=== PATIENT | female | born 1970 | race Caucasian/White ===

== ENCOUNTER 2018-09-09 13:25 | Emergency (ER) | payer BC, OTHER ==
[2018-09-09 14:12] VITALS: BP 140/91
--- NOTE | 2018-09-09 14:24 | UC ---
FLU HPI - HPI Summary HPI Summary: 48 year old female presents with 4 day history of nasal congestion, clear nasal discharge, sore throat, and muscle aches. States had low grade fever (100 F) at onset of symptoms. Over past 2 days has developed a harsh, non-productive cough. Denies chest pain, shortness of breath, abdominal pain, nausea, or vomiting. - History of Current Complaint Chief Complaint: UCRespiratory Stated Complaint: FLU-LIKE SYMPTOMS Time Seen by Provider: 09/09/18 14:16 Hx Obtained From: Patient Hx Last Menstrual Period: na Onset/Duration: Gradual Onset, Lasting Days - 4 Severity Initially: Moderate Pain Intensity: 9 Associated Signs & Symptoms: Positive: Fever, Myalgia, Cough, Sore Throat, Nasal Congestion. Negative: Headache, Vomiting - Allergy/Home Medications Allergies/Adverse Reactions: Allergies Allergy/AdvReac Type Severity Reaction Status Date / Time Penicillins Allergy Intermediate Rash Verified 09/10/18 15:53 PMH/Surg Hx/FS Hx/Imm Hx Previously Healthy: Yes - Denies significan PMH - Surgical History Surgical History: Yes Surgery Procedure, Year, and Place: BREAST IMPLANTS - Family History Known Family History: Positive: Non-Contributory - Social History Occupation: Employed Full-time Lives: With Family Alcohol Use: Occasionally Substance Use Type: None Smoking Status (MU): Never Smoked Tobacco - Immunization History Most Recent Influenza Vaccination: 2012/2013 Season Review of Systems All Other Systems Reviewed And Are Negative: Yes Constitutional: Positive: Fever Skin: Negative: Rash Eyes: Negative: Drainage, Eye Redness ENT: Positive: Sore Throat, Nasal Discharge, Sinus Congestion. Negative: Ear Ache Respiratory: Positive: Cough. Negative: Shortness Of Breath Cardiovascular: Negative: Palpitations, Chest Pain Gastrointestinal: Negative: Abdominal Pain, Vomiting, Diarrhea, Nausea Is Patient Immunocompromised?: No Physical Exam - Summary Physical Exam Summary: GENERAL APPEARANCE: Well developed, well nourished, alert and cooperative, and appears to be in no acute distress. EYES: No conjuntival erythema or drainage. EARS: External auditory canals and tympanic membranes clear, hearing grossly intact. NOSE: Nasal congestion without nasal discharge. THROAT: Oral cavity normal. Mild pharyngeal erythema with cobblestoning. No tonsilar edema or exudate. Teeth and gingiva in good general condition. NECK: Neck supple, non-tender without lymphadenopathy. CARDIAC: Normal S1 and S2. No S3, S4 or murmurs. Rhythm is regular. There is no peripheral edema, cyanosis or pallor. Extremities are warm and well perfused. Capillary refill is less than 2 seconds. LUNGS: Clear to auscultation and percussion without rales, rhonchi, wheezing or diminished breath sounds. Nonproductive cough. ABDOMEN: Positive bowel sounds. Soft, nondistended, nontender. No guarding or rebound. No masses or hepatosplenomegally. MUSKULOSKELETAL: ROM intact to all extremities. No joint erythema or tenderness. Normal muscular development. Normal gait. SKIN: Skin normal color, texture and turgor with no lesions or eruptions. Triage Information Reviewed: Yes Vital Signs: Initial Vital Signs Temp 98.3 F 09/09/18 14:09 Pulse 79 09/09/18 14:09 Resp 18 09/09/18 14:09 BP 140/91 09/09/18 14:09 Pulse Ox 100 09/09/18 14:09 Vital Signs Reviewed: Yes Flu Course/Dx - Course Course Of Treatment: 48 year old female presents with 4 day history of nasal congestion, clear nasal discharge, sore throat, and muscle aches. States had low grade fever (100 F) at onset of symptoms. Over past 2 days has developed a harsh, non-productive cough. Afebrile. Exam reveals well appearing adult female with nasal congestion, mild pharyngeal erythema with cobblestoning, and a non- productive cough consistent with a viral URI. Recommend symptomatic treatment including fluticasone nasal spray, saline rinses, and Tessalon Perles PRN for cough. She is to follow up with her PCP in 7 days if symptoms persist. Warning symptoms reviewed. Verbalizes understanding and agrees with POC. - Differential Dx/Diagnosis Differential Diagnosis/HQI/PQRI: Bronchitis, Influenza, Pneumonia, Upper Respiratory Infection Provider Diagnosis: Viral URI with cough Discharge - Sign-Out/Discharge Documenting (check all that apply): Patient Departure All imaging exams completed and their final reports reviewed: No Studies - Discharge Plan Condition: Stable Disposition: HOME Prescriptions: Benzonatate CAP* [Tessalon 100 MG CAP*] 100 mg PO TID PRN #30 cap PRN Reason: Cough Fluticasone NASAL SPRAY 50MCG* [Flonase NASAL SPRAY 50MCG*] 2 spray BOTH NARES DAILY #1 btl Patient Education Materials: Upper Respiratory Infection (ED) Referrals: Tk Hamm MD [Primary Care Provider] - 7 Days (If symptoms persist.) Additional Instructions: Your history and exam are consistent with viral upper respiratory infection. Viral infections do not respond to antibiotics and are limited to the treatment of symptoms. Viral infections typically run their course in 7-10 days. Drink plenty of fluids to avoid dehydration especially if you are running any fever. Continue taking the Aleve D according to directions. Start fluticasone (Flonase) nasal spray 2 sprays each nostril once a day. Use a saline rinse kit such as Neti Pot or NeilMed at least twice a day to help thin secretions and promote drainage. Take Tessalon Perles 1 cap every 8 hours as needed for cough. Use salt water gargles several times a day for the sore throat. You may also use Chloraseptic spray or Cepacol lonzenges according to directions which contain a numbing medication and can provide some temporary relief from your sore throat. Follow up with your primary care provider in 7 days if your symptoms persist. Seek immediate medical attention in the emergency room if you have fever greater than 100.5 F despite taking ibuprofen, are unable to swallow or develop drooling, have chest pain, have any difficulty breathing, or any worsening of symptoms. - Billing Disposition and Condition Condition: STABLE Disposition: Home
== END 2018-09-09 14:40 | disposition home or self-care (01) ==
LOC: UCEAST 13:25
DX: J06.9 Acute upper respiratory infection, unspecified (principal); R05 Cough; Z88.0 Allergy status to penicillin
CPT/HCPCS: 99212; G0463

== ENCOUNTER 2018-09-10 15:19 | Emergency (ER) | payer BC ==
[2018-09-10 15:53] VITALS: BP 142/79
--- NOTE | 2018-09-10 16:57 | UC ---
Respiratory Complaint HPI - HPI Summary HPI Summary: Pt presents with c/o worsening cough, "whooping" when coughing and coughing fits that cause her " to be unable to catch her breath". Pt was seen here 1 day ago and given tk cason and states "they do nothing for me" - History of Current Complaint Chief Complaint: UCRespiratory Stated Complaint: URI Time Seen by Provider: 09/10/18 16:51 Hx Obtained From: Patient Hx Last Menstrual Period: na ?: No Onset/Duration: Sudden Onset, Lasting Days, Still Present, Worse Since - onset Timing: Intermittent Episodes Severity Initially: Mild Severity Currently: Moderate Pain Intensity: 6 Character: Cough: Nonproductive Aggravating Factors: Exertion, Deep Breaths, Recumbent Position Alleviating Factors: Nothing Associated Signs And Symptoms: Positive: Wheezing - Risk Factors Pulmonary Embolism Risk Factors: Negative Cardiac Risk Factors: Negative Pseudomonas Risk Factors: Negative Tuberculosis Risk Factors: Negative - Allergies/Home Medications Allergies/Adverse Reactions: Allergies Allergy/AdvReac Type Severity Reaction Status Date / Time Penicillins Allergy Intermediate Rash Verified 09/10/18 15:53 Home Medications: Home Medications Naproxen Sodium/Pseudoephedrin [Aleve-D Sinus and Cold Caplet] 1 tab PO [History] PMH/Surg Hx/FS Hx/Imm Hx Previously Healthy: Yes - Surgical History Surgical History: Yes Surgery Procedure, Year, and Place: IMPLANTS - Family History Known Family History: Positive: Cardiac Disease - Social History Occupation: Employed Full-time Alcohol Use: Occasionally Substance Use Type: None Smoking Status (MU): Never Smoked Tobacco Have You Smoked in the Last Year: No - Immunization History Most Recent Influenza Vaccination: Season Vaccination Up to Date: No Review of Systems All Other Systems Reviewed And Are Negative: Yes Constitutional: Positive: Chills, Fatigue Skin: Positive: Negative Eyes: Positive: Negative ENT: Positive: Negative Respiratory: Positive: Shortness Of Breath, Cough Cardiovascular: Positive: Negative Gastrointestinal: Positive: Negative Genitourinary: Positive: Negative Motor: Positive: Negative Neurovascular: Positive: Negative Musculoskeletal: Positive: Negative Neurological: Positive: Negative Psychological: Positive: Negative Is Patient Immunocompromised?: No Physical Exam Triage Information Reviewed: Yes Appearance: Ill-Appearing Vital Signs: Initial Vital Signs Temp 98.1 F 09/10/18 15:48 Pulse 85 09/10/18 15:48 Resp 18 09/10/18 15:48 BP 142/79 09/10/18 15:48 Pulse Ox 100 09/10/18 15:48 Vital Signs Reviewed: Yes Eye Exam: Normal ENT Exam: Normal Dental Exam: Normal Neck exam: Normal Respiratory: Positive: Lungs clear Cardiovascular Exam: Normal Musculoskeletal Exam: Normal Neurological Exam: Normal Psychological Exam: Normal Skin Exam: Normal UC Diagnostic Evaluation - Laboratory O2 Sat by Pulse Oximetry: 100 Respiratory Course/Dx - Course Course Of Treatment: I disucssed my concern for whooping cough. Pt verbalized understanding and agreed to plan of care. - Differential Dx/Diagnosis Differential Diagnosis/HQI/PQRI: Bronchitis Provider Diagnosis: Bronchitis Discharge - Sign-Out/Discharge Documenting (check all that apply): Patient Departure All imaging exams completed and their final reports reviewed: No Studies - Discharge Plan Condition: Stable Disposition: HOME Prescriptions: Azithromycin TAB* [Zithromax TAB (Z-ERJI) 250 mg #6 tabs] 2 tab PO .TODAY, THEN 1 DAILY #1 reji Codeine Phosphate/Guaifenesin [Codeine-Guaifen 10-100 mg/5 ml] 5 ml PO BEDTIME PRN #35 ml MDD 5 ml PRN Reason: Cough predniSONE TAB* [Deltasone 20 MG TAB*] 20 mg PO DAILY #4 tab Patient Education Materials: Acute Bronchitis (ED), Bronchospasm (ED) Referrals: Tk Hamm MD [Primary Care Provider] - As Soon As Possible - Billing Disposition and Condition Condition: STABLE Disposition: Home
[2018-09-12 18:51] LABS: Bordetella pertussis PCR Negative
== END 2018-09-10 17:45 | disposition home or self-care (01) ==
LOC: UCEAST 15:19
DX: J40 Bronchitis, not specified as acute or chronic (principal); Z88.0 Allergy status to penicillin
CPT/HCPCS: 87798; 99212; G0463

== ENCOUNTER 2018-10-03 20:27 | Emergency (ER) | payer BC ==
--- NOTE | 2018-10-03 21:39 | ED ---
Shortness of Breath - HPI Summary HPI Summary: This patient is a 48 year old F presenting to [facility] accompanied by her with a chief complaint of SOB since a couple weeks ago. Patient reports fatigue , shoulder pain, back pain, HERNANDEZ, vision difficulties, neck pain, and leg cramping. Patient denies CP, cough, rhinorrhea, edema of the LEs, N/V, rash, or joint pain. 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 In July she travelled to [place] and [place]. She has been teaching all week and feels very fatigued during her classes. She wears contacts and glasses and noticed that her vision is getting worse very quickly. Her head and neck have stopped hurting while in the ED. The patient reports abnormal period patterns, occasional night diaphoresis. [facility] diagnosed her with whooping cough several weeks ago. She had a cough and many cold symptoms. This occurred before her current symptoms appeared. PMHX whooping cough. SHX fitness consultant, occasional EtOH use. No SHx tobacco use , marijuana use. FHX Afib, other cardiac problems. - History of Current Complaint Chief Complaint: EDShortnessOfBreath Time Seen by Provider: 10/03/18 21:22 Hx Obtained From: Patient Onset/Duration: Gradual Onset, Lasting Weeks - 2 Current Severity: None Dyspnea At: Exertion Aggrevating Factors: Movement - Allergy/Home Medications Allergies/Adverse Reactions: Allergies Allergy/AdvReac Type Severity Reaction Status Date / Time Penicillins Allergy Intermediate Rash Verified 09/10/18 15:53 Home Medications: Home Medications NK [No Home Medications Reported] 10/03/18 [History Confirmed 10/03/18] PMH/Surg Hx/FS Hx/Imm Hx Endocrine/Hematology History: Denies: Hx Diabetes, Hx Thyroid Disease Cardiovascular History: Denies: Hx Hypertension Respiratory History: Denies: Hx Asthma, Hx Chronic Obstructive Pulmonary Disease (COPD) GI History: Denies: Hx Ulcer - Cancer History Hx Chemotherapy: No Hx Radiation Therapy: No - Surgical History Surgery Procedure, Year, and Place: IMPLANTS Infectious Disease History: No Infectious Disease History: Denies: Hx Hepatitis, Hx Human Immunodeficiency Virus (HIV), History Other Infectious Disease, Traveled Outside the [place] in Last 30 Days - Family History Known Family History: Positive: Cardiac Disease, Other - Afib - Social History Alcohol Use: Occasionally Substance Use Type: Reports: None Smoking Status (MU): Never Smoked Tobacco Have You Smoked in the Last Year: No Review of Systems Positive: Fatigue Positive: Other - vision changes Negative: Nasal Discharge Negative: Chest Pain Positive: Shortness Of Breath. Negative: Cough Negative: Vomiting, Nausea Positive: Myalgia - shoulder pain, neck pain, leg cramping, back pain. Negative : Edema, Other - joint pain Positive: Headache All Other Systems Reviewed And Are Negative: Yes Physical Exam - Summary Physical Exam Summary: Appearance: Well-appearing, Well-nourished, lying in bed comfortably Skin: Warm, dry, no obvious rash Eyes: sclera anicteric, no conjunctival pallor ENT: mucous membranes moist, pharynx appears normal Neck: Supple, nontender Respiratory: Clear to auscultation, no signs of respiratory distress Cardiovascular: Normal S1, S2. No murmurs. Normal distal pulses in tibial and radial bilaterally. Abdomen: Soft, nontender, normal active bowel sounds present. Rectal exam is normal, guiac test is negative. Musculoskeletal: Normal, Strength/ROM Intact Neurological: A&Ox3, awake and alert, mentation is normal, speech is fluent and appropriate Psychiatric: affect is normal, does not appear anxious or depressed Triage Information Reviewed: Yes Vital Signs On Initial Exam: Initial Vitals Temp Pulse Resp BP Pulse Ox 99.9 F 62 16 132/67 100 10/03/18 20:35 10/03/18 20:35 10/03/18 20:35 10/03/18 20:35 10/03/18 20:35 Vital Signs Reviewed: Yes Diagnostics - Vital Signs Vital Signs Temp Pulse Resp BP Pulse Ox 10/03/18 20:35 99.9 F 62 16 132/67 100 - Laboratory Result Diagrams: 10/03/18 21:38 10/03/18 21:38 Lab Statement: Any lab studies that have been ordered have been reviewed, and results considered in the medical decision making process. - Radiology CXR Radiology Interpretation Completed By: ED Physician Summary of Radiographic Findings: No acute disease, pending official report - EKG 21:52 Cardiac Rate: NL - 67 bpm EKG Rhythm: Sinus Rhythm Summary of EKG Findings: auteroseptal Q waves Course/Dx - Course Course Of Treatment: This patient is a 48 year old F presenting to [facility] accompanied by her with a chief complaint of SOB since a couple weeks ago. Patient reports fatigue, shoulder pain, back pain, HERNANDEZ, vision difficulties , neck pain, and leg cramping. Patient denies CP, cough, rhinorrhea, edema of the LEs, N/V, rash, or joint pain. An EKG reveals NSR 67 bpm, auteroseptal Q waves. CXR reveals, per ED physician, no acute disease. Pending official radiology report. Test results with no significant abnormalities. Patient will be discharged with follow up from Dr. Hamm. The patient is agreeable with this plan. - Diagnoses Provider Diagnoses: Anemia Discharge - Sign-Out/Discharge Documenting (check all that apply): Patient Departure - discharge - Discharge Plan Condition: Good Disposition: HOME Patient Education Materials: Anemia (ED) Referrals: Tk Hamm MD [Primary Care Provider] - Additional Instructions: Start taking OTC iron supplement pending a recheck by your doctor which should be done after a month or so of iron therapy. - Billing Disposition and Condition Condition: GOOD Disposition: Home - Attestation Statements Document Initiated by Lillie: Yes Documenting Scribe: Brandon Padilla Provider For Whom Lilile is Documenting (Include Credential): Bob Beth MD Scribe Attestation: Brandon Angela scribed for Bob Beth MD on 10/04/18 at 0236. Scribe Documentation Reviewed: Yes Provider Attestation: The documentation as recorded by the Brandon dempsey accurately reflects the service I personally performed and the decisions made by me, Bob Beth MD Status of Scribe Document: Viewed
[2018-10-03 21:53] LABS: Hematocrit 29 % (35-47); Hemoglobin 8.8 g/dl (12.0-16.0); Mean Corpuscular HGB Conc 30 g/dl (31-36); Mean Corpuscular Hemoglobin 21 pg (27-31); Mean Corpuscular Volume 70 fL (80-97); Mean Platelet Volume 6.7 fL (7.4-10.4); Platelet Count 131 10^3/ul (150-450); Red Blood Count 4.19 10^6/ul (4.00-5.40); Red Cell Distribution Width 18 % (10.5-15); White Blood Count 3.4 10^3/ul (3.5-10.8)
[2018-10-03 22:09] LABS: Albumin 4.3 g/dL (3.2-5.2); Albumin/Globulin Ratio 1.7 (1-3); BUN/Creatinine Ratio 17.9 (8-20); Calcium 9.4 mg/dL (8.6-10.3); EGFR Non-African American 93.2 (>60); Globulin 2.6 g/dL (2-4); Potassium 3.9 mmol/L (3.5-5.0); Total Bilirubin 0.7 mg/dL (0.2-1.0); Total Protein 6.9 g/dL (6.4-8.9)
[2018-10-03 22:15] LABS: HCG Pregnancy 0.82 mIU/mL
[2018-10-03 22:17] LABS: ABS Basophils 0 10^3/ul (0-0.2); ABS Eosinophils 0.3 10^3/ul (0-0.6); ABS Lymphocytes 1.3 10^3/ul (1.0-4.8); ABS Monocytes 0.4 10^3/ul (0-0.8); ABS Neutrophils 1.4 10^3/ul (1.5-7.7); ABS Nucleated RBC 0 10^3/ul; Eosinophil % 10.2 %; Lymphocyte % 38.5 %; Nucleated Red Blood Cells % 0.1
[2018-10-03 22:18] LABS: Microcytosis 2+
[2018-10-03 22:55] VITALS: BP 110/67
== END 2018-10-03 23:26 | disposition home or self-care (01) ==
LOC: ED 20:27
DX: D64.9 Anemia, unspecified (principal); Z88.0 Allergy status to penicillin
CPT/HCPCS: 36415; 71046; 80053; 84484; 84702; 85025; 85060; 85379; 93005; 99283